=== PATIENT | male | born 1940 | race African-American/Black ===

== ENCOUNTER 2016-06-07 15:46 | Emergency (ER) | payer MEDICARE ==
[~2016-06-07] VITALS: Ht 177.8 cm; Wt 80.0 kg
[~2016-06-07 15:46] MED LIST: ASPI-1035 PO; COR6 PO; DEXTROSE 50% WATER 50ML SYRINGE IV ONE; EPINEPHRINE 0.1MG/ML (1:10,000) 10ML SYR ONE; NIAC500C8 PO; TRAM50TA3 PO
[2016-06-07 15:52] VITALS: BP 0/0
== END 2016-06-07 15:52 | disposition expired ==
LOC: ER 15:48
DX: I46.9 Cardiac arrest, cause unspecified (principal); I10 Essential (primary) hypertension; E78.00 Pure hypercholesterolemia, unspecified; Z99.2 Dependence on renal dialysis; Z86.73 Personal history of transient ischemic attack (TIA), and cerebral infarction without residual deficits; Z79.82 Long term (current) use of aspirin; Z88.8 Allergy status to other drugs, medicaments and biological substances; Z91.018 Allergy to other foods
CPT/HCPCS: 99285; J0171